=== PATIENT | female | born 1975 | race Caucasian/White ===

== ENCOUNTER → 2016-08-29 | Outpatient (CLI) | payer BC ==
[~2016-08-29] MED LIST: LEXAPRO20 MG PO; NORCO 7.5-3251 EACH PO; RANITIDINE HCL150 M1 PO
== END | disposition disaster alternative care site (69) ==
LOC: GONC 12:17
DX: Z12.31 Encounter for screening mammogram for malignant neoplasm of breast (principal); N63 Unspecified lump in breast
CPT/HCPCS: G0202

== ENCOUNTER → 2016-08-31 | Outpatient (CLI) | payer BC | END | disposition disaster alternative care site (69) | LOC: GRAD 13:21 | DX: N63 Unspecified lump in breast (principal); N60.02 Solitary cyst of left breast ==